=== PATIENT | female | born 1945 | race Asian ===

== ENCOUNTER 2019-09-18 17:33 | Emergency (ER) | payer MEDICARE, OTHER ==
[~2019-09-18] VITALS: Ht 154.9 cm; Wt 45.4 kg
[2019-09-18 17:33] VITALS: BP 150/88
--- NOTE | 2019-09-18 17:33 | NUR ---
ED Nurse Note: Patient [place] due to left lower leg pain and neck pain S/P mechanical fall today. Noted with hematoma on left mccartney. Denies head trauma. Pt AAOx4, verbally responsive. No SOB. ERMD at bedside.
[2019-09-18] MEDS ORDERED: Tetanus/Diptheria/Pertussis IM ONE (17:45)
[2019-09-18] MEDS ORDERED: Acetaminophen 500mg (ES) tab PO ONE (17:45)
[2019-09-18] MEDS ORDERED: Neosporin Oint Ud Pkt TOP ONE (17:45)
--- NOTE | 2019-09-18 17:45 | Emergency Room Report ---
History of Present Illness General Chief Complaint: Multiple Trauma/Fall Source: Patient, EMS Present Illness HPI Patient brought in by EMS after fall on an escalator [place] a shopping center. There was no loss of consciousness. She had bags and hit her left knee. She also hit her upper lip. There was no loss of consciousness. She was able to ambulate with assistance. She is also complaining about left shoulder pain more along the trapezius and shoulder itself. She rates the pain 8/10 at this time more in her leg that anywhere else on her body. Daughter states that is been greater than 10 years since her last tetanus shot. Patient is right-handed Allergies: Coded Allergies: No Known Allergies (Unverified , 09/18/19) COVID-19 Screening Contact w/high risk pt: No Recent Travel to affected area: No Experienced COVID-19 symptoms?: No COVID-19 Testing performed [facility]NER: No Patient History Past Medical History: see triage record Social History: Denies: smoking, alcohol use, drug use Social History Narrative With daughter Reviewed Nursing Documentation: PMH: Agreed; PSxH: Agreed Nursing Documentation-PMH Past Medical History: No History, Except For Hx Hypertension: Yes Review of Systems Constitutional: Denies: fever Eye: Denies: blurred vision ENT: Reports: see HPI Respiratory: Denies: shortness of breath Cardiovascular: Denies: chest pain Gastrointestinal: Denies: abdominal pain Musculoskeletal: Reports: see HPI Skin: Reports: see HPI Neurological: Reports: see HPI Physical Exam Vital Signs Date Time Temp Pulse Resp B/P (MAP) Pulse Ox O2 Delivery O2 Flow Rate FiO2 09/18/19 17:28 96.8 92 18 150/88 (108) 98 Room Air Sp02 EP Interpretation: reviewed, normal General Appearance: well appearing, no apparent distress, GCS 15 Head: normocephalic Eyes: bilateral eye normal inspection, bilateral eye PERRL ENT: moist mucus membranes, other - Abrasion upper inner lip Neck: full range of motion, supple, no bony tend Respiratory: chest non-tender, lungs clear, normal breath sounds Cardiovascular #1: regular rate, rhythm Cardiovascular #2: 2+ radial (L), 2+ dorsalis pedis (L) Gastrointestinal: normal inspection, non tender Musculoskeletal: no calf tenderness, pelvis stable, other - Tibial tuberosity left swelling, hematoma and abrasion knee ligaments stable however there is tenderness with passive range of motion Neurologic: alert, motor strength/tone normal, sensory intact, speech normal Psychiatric: mood/affect normal Skin: warm/dry, abrasions, hematoma Medical Decision Making Diagnostic Impression: Primary Impression: Multiple injuries due to trauma Additional Impressions: Knee contusion Qualified Codes: S80.02XA - Contusion of left knee, initial encounter Facial contusion Qualified Codes: S00.83XA - Contusion of other part of head, initial encounter Neck muscle strain Qualified Codes: S16.1XXA - Strain of muscle, fascia and tendon at neck level , initial encounter Contusion of left shoulder Qualified Codes: S40.012A - Contusion of left shoulder, initial encounter ER Course Patient presents after non-syncopal fall with left knee and facial injury. Differential includes fracture, contusion, hematoma and duration. X-rays are indicated. Patient will be given Tylenol. Patient's abrasions will be cleaned and dressed and with bacitracin applied. X-rays without fracture. Rogelio applied by tech. Improvement in pain. Tension excellent. Distal neurovascular checked by me and normal. Discussed treatment plan with patient. Patient stable for outpatient observation and treatment. Other X-Ray Diagnostic Results Other X-Ray Diagnostic Results #1: X-Ray ordered: L knee # of Views/Limited Vs Complete: 3 View Indication: Pain EP Interpretation: Yes Interpretation: no dislocation, no soft tissue swelling, no fractures Impression: No acute disease Electronically Signed by: Electronically signed by Pete De La Fuente MD Other X-Ray Diagnostic Results #2: X-Ray ordered: L tib fib # of Views/Limited Vs Complete: 2 View Indication: Swelling EP Interpretation: Yes Interpretation: no dislocation, no fractures, other - Soft tissue swelling Impression: Other Electronically Signed by: Electronically signed by Pete De La Fuente MD Last Vital Signs Date Time Temp Pulse Resp B/P (MAP) Pulse Ox O2 Delivery O2 Flow Rate FiO2 09/18/19 18:51 96.8 18 150/88 98 Room Air 09/18/19 17:33 92 Status: improved Disposition: HOME, SELF-CARE Condition: Improved Scripts Bacitracin (Bacitracin) 28.4 Gm Oint...g. 1 APPLIC TOPIC BID, #14 GM Prov: Pete De La Fuente MD 09/18/19 Acetaminophen (Tylenol) 325 Mg Tablet 650 MG ORAL Q6H PRN for Prn Pain/Headache/Temp > 101, #30 TAB 0 Refills Prov: Pete De La Fuente MD 09/18/19 Pete De La Fuente MD Sep 18, 2019 17:45
--- NOTE | 2019-09-18 17:59 | NUR ---
ED Nurse Note: Xray at bedside.
--- NOTE | 2019-09-18 18:25 | Diagnostic Imaging Report ---
EXAM: XR Left Tibia and Fibula, 2 Views CLINICAL HISTORY: TRAUMA TECHNIQUE: Frontal and lateral views of the left tibia and fibula. COMPARISON: No relevant prior studies available. FINDINGS: Bones/joints: No fracture or malalignment. Osteopenia. Soft tissues: Unremarkable. No radiopaque foreign body. IMPRESSION: No fracture or malalignment.
--- NOTE | 2019-09-18 18:26 | Diagnostic Imaging Report ---
EXAM: XR Left Knee, 3 Views CLINICAL HISTORY: TRAUMA TECHNIQUE: Three views of the left knee. COMPARISON: No relevant prior studies available. FINDINGS: Bones/joints: No fracture or malalignment. Osteopenia. No large joint effusion. Meniscal chondrocalcinosis. Soft tissues: Unremarkable. IMPRESSION: No fracture or malalignment.
[2019-09-18] MEDS ORDERED: BACITRACIN15 GM TOPIC (18:35)
[2019-09-18] MEDS ORDERED: TYLENOL325 MG ORAL (18:35)
[2019-09-18 18:51] VITALS: BP 150/88
--- NOTE | 2019-09-18 18:51 | NUR ---
ED Nurse Note: Pt cleared by ERMD for discharge. DC instructions/prescription was given and explained to pt and verbalized understanding of teachings. All medical deviecs such as ID band removed. Pt is AAO x4, ambulatory and left with all personal belongings.
== END 2019-09-18 18:51 | disposition home or self-care (01) ==
LOC: EDBD 17:33 → EMR 18:14
DX: S40.012A Contusion of left shoulder, initial encounter (principal); S16.1XXA Strain of muscle, fascia and tendon at neck level, initial encounter; S00.83XA Contusion of other part of head, initial encounter; S80.02XA Contusion of left knee, initial encounter; I10 Essential (primary) hypertension; W10.0XXA Fall (on)(from) escalator, initial encounter; Y92.9 Unspecified place or not applicable; Z23 Encounter for immunization
CPT/HCPCS: 90471; 90715; 99284